=== PATIENT | male | born 1995 | race Two or more races ===

== ENCOUNTER 2017-05-25 11:14 | Outpatient (CLI) ==
[2017-05-25 13:02] LABS: BASOPHILS # (AUTO) 0.1 K/uL (0-0.2); EOSINOPHILS # (AUTO) 0.2 K/ul (0.0-0.7); HEMATOCRIT 44.1 % (42.0-52.0); HEMOGLOBIN 14.7 g/dl (14.0-18.0); IMMATURE GRANULOCYTE % (AUTO) 0.7 % (0.0-5.0); LYMPHOCYTES % (AUTO) 33.6 (10.0-50.0); MEAN CORPUSCULAR HEMOGLOBIN 26.9 pg (27.0-31.0); MEAN CORPUSCULAR HGB CONC 33.3 (31.8-35.4); MEAN CORPUSCULAR VOLUME 80.6 fl (80.0-94.0); MONOCYTES # (AUTO) 0.4 K/uL (0.4-2.0); MONOCYTES % (AUTO) 7.1 (0-10); NEUTROPHILS # (AUTO) 3.1 K/ul (2.0-6.9); NEUTROPHILS % (AUTO) 53.6; PLATELET COUNT 349 10^3/uL (140-440); RED BLOOD COUNT 5.47 10^6/ul (4.70-6.10)
[2017-05-25 13:36] LABS: ALBUMIN 4.1 g/dL (3.4-5.0); ALBUMIN/GLOBULIN RATIO 1.08; ANION GAP 17.3; BILIRUBIN,TOTAL 0.47 mg/dL (0.60-1.40); BUN/CREATININE RATIO 16.45; CALCIUM 9.3 mg/dL (8.2-10.2); CREATININE 0.79 mg/dL (0.60-1.10); POTASSIUM 4.3 mmol/L (3.5-5.1); TOTAL PROTEIN 7.9 g/dL (6.4-8.2)
[2017-05-26 10:14] LABS: TESTOSTERONE 523 ng/dL (264-916)
== END 2017-05-25 11:15 | disposition home or self-care (01) ==
LOC: LAB 11:14
PROVIDERS: ATTEND General Practice
DX: E66.9 Obesity, unspecified (principal); Z79.899 Other long term (current) drug therapy
CPT/HCPCS: 36415; 80053; 80061; 83525; 84403; 84443; 85025

== ENCOUNTER 2019-03-06 15:57 | Outpatient (CLI) | END 2019-03-06 15:58 | disposition home or self-care (01) | LOC: RHC-LAB 15:57 | PROVIDERS: ATTEND General Practice | DX: Z00.00 Encounter for general adult medical examination without abnormal findings (principal) | CPT/HCPCS: 36415; 80053; 80061; 81001; 83525; 84402; 84403; 84443; 85025 ==